=== PATIENT | female | born 1995 | race Caucasian/White ===

== ENCOUNTER 2018-04-10 11:26 | Emergency (ER) | payer OTHER ==
[~2018-04-10] VITALS: Ht 154.9 cm; Wt 50.8 kg
== END 2018-04-10 17:49 | disposition home or self-care (01) ==
LOC: ER 11:26
DX: M62.838 Other muscle spasm (principal); M54.2 Cervicalgia

== ENCOUNTER 2018-07-21 15:57 | Emergency (ER) | payer OTHER ==
[~2018-07-21] VITALS: Ht 154.9 cm; Wt 50.8 kg
== END 2018-07-21 21:14 | disposition home or self-care (01) ==
LOC: ER 15:57
DX: O26.891 Other specified pregnancy related conditions, first trimester (principal); R10.2 Pelvic and perineal pain; Z34.81 Encounter for supervision of other normal pregnancy, first trimester

== ENCOUNTER 2021-05-08 22:44 | Emergency (ER) | payer OTHER ==
[~2021-05-08] VITALS: Ht 154.9 cm; Wt 49.9 kg
[2021-05-09] MEDS ORDERED: ZOFRAN4 MG PO (02:59)
[2021-05-09] MEDS ORDERED: PEPCID40 MG PO (02:59)
== END 2021-05-09 03:07 | disposition home or self-care (01) ==
LOC: ER 22:44
DX: K29.60 Other gastritis without bleeding (principal); Z03.818 Encounter for observation for suspected exposure to other biological agents ruled out